=== PATIENT | female | born 1995 | race African-American/Black ===

== ENCOUNTER 2020-11-30 09:55 | Emergency (ER) | payer BC, SELFPAY ==
[2020-11-30 10:00] VITALS: BP 130/58; PULSE 85; RESP 16; TEMP 36.1; O2SAT 100
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
[2020-11-30] MEDS: IBUPROFEN 600 MG TABLET PO (11:26)
[2020-11-30] MEDS: diazePAM (*CRX) 5 MG TABLET PO (11:27)
[2020-11-30 11:34] VITALS: BP 130/79; PULSE 72; RESP 18; TEMP 36.7; O2SAT 98
== END 2020-11-30 11:39 | disposition home or self-care (01) ==
PROVIDERS: Emergency Provider General Practice
DX: S29.012A Strain of muscle and tendon of back wall of thorax, initial encounter (principal); E66.9 Obesity, unspecified; Z68.39 Body mass index [BMI] 39.0-39.9, adult; V49.40XA Driver injured in collision with unspecified motor vehicles in traffic accident, initial encounter
CPT/HCPCS: 81025; 99283; A9270